=== PATIENT | male | born 1965 | race American Indian/Alaskan Native ===

== ENCOUNTER 2020-04-12 12:46 | Emergency (ER) | payer MEDICARE ==
[2020-04-12 13:41] VITALS: BP 116/91
--- NOTE | 2020-04-12 13:56 | Emergency Department Report ---
HPI - General Chief Complaint: Psych Time Seen by Provider: 04/12/20 13:46 - HPI HPI: 54-year-old -[place] male presents to the emergency department with a complaint of hallucinations and suicidal ideations. The patient has a history of schizoaffective disorder and says he has not been on his medication for the past few months. He says that he is hearing voices that tell him they are going to "hurt me and kill me." He does not have any particular plan as to how he would hurt himself. He denies any homicidal ideations or any visual halluc inations. He is a tobacco smoker but denies any illicit drug use. He does admit to drinking some beer but says he is not currently intoxicated. ED Past Medical Hx - Past Medical History Hx Hypertension: Yes Hx Psychiatric Treatment: (Schizophrenia) ED Review of Systems ROS: Stated complaint: MH Other details as noted in HPI Comment: All other systems reviewed and negative Constitutional: denies: chills, fever Eyes: denies: eye pain, vision change Respiratory: denies: cough, shortness of breath Cardiovascular: denies: chest pain Gastrointestinal: denies: abdominal pain Musculoskeletal: denies: back pain Neurological: denies: headache, weakness Psychiatric: auditory hallucinations, suicidal thoughts Physical Exam - Physical Exam Vital Signs: Vital Signs 04/12/20 13:40 Temperature 97.8 F Pulse Rate 77 Respiratory 18 Rate Blood Pressure 116/91 [Right] O2 Sat by Pulse 98 Oximetry Physical Exam: GENERAL: The patient is well-developed well-nourished. HENT: Normocephalic. Atraumatic. Patient has moist mucous membranes. EYES: Extraocular motions are intact. NECK: Supple. Trachea is midline. CHEST/LUNGS: Clear to auscultation. There is no respiratory distress noted. HEART/CARDIOVASCULAR: Regular. There is no tachycardia. ABDOMEN: Abdomen is soft, nontender. Patient has normal bowel sounds. SKIN: Skin is warm and dry. NEURO: The patient is awake, alert, and oriented. The patient is cooperative. Normal speech. MUSCULOSKELETAL: There is no tenderness or deformity. There is no evidence of acute injury. ED Course Vital Signs 04/12/20 13:40 Temperature 97.8 F Pulse Rate 77 Respiratory 18 Rate Blood Pressure 116/91 [Right] O2 Sat by Pulse 98 Oximetry ED Medical Decision Making - Lab Data Result diagrams: 04/12/20 14:14 04/12/20 14:14 - Medical Decision Making This patient presents to the emergency department with complaint of command hallucinations and suicidal ideations consistent with his history of schizophrenia. For this reason he was made a 1013. Labs are mostly unremarkable except for a urine drug screen positive for cocaine, but the patient does not appear acutely intoxicated. Vital signs stable throughout his ED course. He was seen by the psychiatric assessment team that agrees with the plan for inpatient stabilization and the patient has been accepted to [facility]. Critical Care Time: No Critical care attestation.: If time is entered above; I have spent that time in minutes in the direct care of this critically ill patient, excluding procedure time. ED Disposition Clinical Impression: Suicidal ideations, Schizophrenia Disposition: [id number] PSY HOSP/PSY UNIT Is pt being admited?: No Condition: Stable Time of Disposition: 17:52
[2020-04-12 14:25] LABS: Basophils % (Auto) 0.4 % (0.0-1.8); Eosinophils % (Auto) 0.4 % (0.0-4.3); Hematocrit 45.7 % (35.5-45.6); Hemoglobin 15.1 gm/dl (11.8-15.2); Lymphocytes # (Auto) 1.7 K/mm3 (1.2-5.4); Lymphocytes % (Auto) 36.5 % (13.4-35.0); Mean Corpuscular HGB Conc 33 % (32-34); Mean Corpuscular Volume 90 fl (84-94); Monocytes # (Auto) 0.4 K/mm3 (0.0-0.8); Monocytes % (Auto) 8.1 % (0.0-7.3); Platelet Count 239 K/mm3 (140-440); Red Blood Count 5.09 M/mm3 (3.65-5.03); Red Cell Distribution Width 16.1 % (13.2-15.2)
[2020-04-12 14:40] LABS: Bilirubin,Urine NEG (Negative); Blood,Urine SM (Negative); Color,Urine Yellow (Yellow); Mucus,Urine 3+ /HPF; Protein,Urine <15 mg/dL mg/dL (Negative)
[2020-04-12 14:41] LABS: Amphetamine Screen,Urine PRESUMPTIVE NEGATIVE; Benzodiazepines Screen,Urine PRESUMPTIVE NEGATIVE; Cannabinoid Screen,Urine PRESUMPTIVE NEGATIVE; Methadone Screen,Urine PRESUMPTIVE NEGATIVE; Opiate Screen,Urine PRESUMPTIVE NEGATIVE
[2020-04-12 14:49] LABS: BUN/Creatinine Ratio 11; Blood Urea Nitrogen 11 mg/dL (9-20); Calcium 9.5 mg/dL (8.4-10.2); Hemolysis Index 6
[2020-04-12 14:59] LABS: Cocaine Screen,Urine PRESUMPTIVE POSITIVE
== END 2020-04-12 19:14 ==
LOC: ED 12:46
DX: R45.851 Suicidal ideations (principal); F20.9 Schizophrenia, unspecified; I10 Essential (primary) hypertension
CPT/HCPCS: 36415; 80048; 80307; 80320; 81001; 85025; G0480